=== PATIENT | male | born 1945 | race Caucasian/White ===

== ENCOUNTER 2019-02-27 18:04 | Observation (INO) | payer OTHER ==
[2019-02-27 20:24] LABS: ADD MAN DIFF? NO
[2019-02-27 20:26] LABS: WHITE BLOOD COUNT 9.5 10^3/ul (4.8-10.8)
[2019-02-27 20:26] LABS: BASOPHILS % 0.3 % (0.0-2.0); EOSINOPHILS # 0.1 10^3/ul (0.0-0.5); EOSINOPHILS % 0.5 % (0.0-7.0); HEMATOCRIT 40.8 % (42.0-52.0); HEMOGLOBIN 13.5 g/dl (14.0-18.0); LYMPHOCYTES # 4.4 10^3/ul (0.8-2.9); MEAN CORPUSCULAR HEMOGLOBIN 28.8 pg (29.0-33.0); MEAN CORPUSCULAR HGB CONC 33.1 g/dl (32.0-37.0); MEAN CORPUSCULAR VOLUME 87.2 fl (82.0-101.0); MEAN PLATELET VOLUME 9.2 fl (7.4-10.4); MONOCYTE # 0.6 10^3/ul (0.3-0.9); MONOCYTES % 6.5 % (0.0-11.0); NEUTROPHIL # 4.4 10^3/ul (1.6-7.5); NEUTROPHILS % 46.5 % (39.0-77.0); PLATELET COUNT 301 10^3/UL (140-415); RED BLOOD COUNT 4.68 10^6/ul (4.70-6.10); RED CELL DISTRIBUTION WIDTH 11.9 % (11.5-14.5)
[2019-02-27] MEDS: SOD CHLORIDE 0.9% 500 ML IV (20:26)
[2019-02-27 20:48] LABS: ALANINE AMINOTRANSFERASE 16 IU/L (13-69); ALBUMIN 4.7 g/dl (3.3-4.9); ALKALINE PHOSPHATASE 49 IU/L (42-121); ANION GAP 14 (5-13); ASPARTATE AMINO TRANSFERASE 21 IU/L (15-46); BILIRUBIN,INDIRECT 0.6 mg/dl (0-1.1); BILIRUBIN,TOTAL 0.6 mg/dl (0.2-1.3); BLOOD UREA NITROGEN 17 mg/dl (7-20); CALCIUM 10.3 mg/dl (8.4-10.2); CARBON DIOXIDE 30 mmol/L (21-31); CHLORIDE 100 mmol/L (97-110); CREATININE 1.02 mg/dl (0.61-1.24); GLUCOSE 132 mg/dl (70-220); LIPASE 124 U/L (23-300); POTASSIUM 3.7 mmol/L (3.5-5.1); SODIUM 144 mmol/L (135-144); TOTAL PROTEIN 8.3 g/dl (6.1-8.1)
[2019-02-27 21:35] LABS: ADD UMIC YES; UR ASCORBIC ACID NEGATIVE (NEGATIVE); UR BILIRUBIN (Dip) NEGATIVE (NEGATIVE); UR BLOOD (Dip) NEGATIVE (NEGATIVE); UR CLARITY CLEAR (CLEAR); UR COLOR STRAW (YELLOW); UR GLUCOSE (Dip) NEGATIVE (NEGATIVE); UR KETONES (Dip) TRACE mg/dL (NEGATIVE); UR LEUKOCYTE ESTERASE (Dip) TRACE Leu/ul (NEGATIVE); UR NITRITE (Dip) NEGATIVE (NEGATIVE); UR RBC 1 /HPF (0-5); UR SPECIFIC GRAVITY (Dip) 1.009 (1.003-1.030); UR TOTAL PROTEIN (Dip) NEGATIVE (NEGATIVE); UR UROBILINOGEN (Dip) NEGATIVE (NEGATIVE); UR WBC 1 /HPF (0-5)
[2019-02-28] MEDS ORDERED: ONDANSETRON 4 MG INJ IV
[2019-02-28] MEDS ORDERED: NA PHOSPHATE/BIPHOS 133 ML ENEMA PR (01:00)
[2019-02-28] MEDS ORDERED: ONDANSETRON 4 MG TAB PO (01:00)
[2019-02-28] MEDS ORDERED: NACL 0.9% 3 ML SYG IV (01:00)
[2019-02-28] MEDS ORDERED: ACETAMINOPHEN 325 MG TAB PO ×2 (01:00)
[2019-02-28] MEDS: NS + KCL 20 MEQ 1,000 ML IV (03:22)
[2019-02-28] MEDS: DOCUSATE SODIUM 100 MG CAP PO (03:22)
[2019-02-28] MEDS ORDERED: IBUPROFEN 600 MG TAB PO (04:00)
[2019-02-28] MEDS ORDERED: SUMATRIPTAN 50 MG TAB PO (04:00)
[2019-02-28] MEDS ORDERED: traMADol 50 MG TAB PO (04:00)
[2019-02-28 05:32] LABS: ADD MAN DIFF? NO
[2019-02-28 05:39] LABS: WHITE BLOOD COUNT 9.3 10^3/ul (4.8-10.8)
[2019-02-28 05:39] LABS: BASOPHILS % 0.3 % (0.0-2.0); EOSINOPHILS # 0.1 10^3/ul (0.0-0.5); EOSINOPHILS % 1.3 % (0.0-7.0); HEMATOCRIT 40.4 % (42.0-52.0); HEMOGLOBIN 13.5 g/dl (14.0-18.0); LYMPHOCYTES # 4.4 10^3/ul (0.8-2.9); LYMPHOCYTES % 46.6 % (15.0-51.0); MEAN CORPUSCULAR HEMOGLOBIN 28.7 pg (29.0-33.0); MEAN CORPUSCULAR HGB CONC 33.4 g/dl (32.0-37.0); MEAN PLATELET VOLUME 9.1 fl (7.4-10.4); MONOCYTE # 0.6 10^3/ul (0.3-0.9); MONOCYTES % 6.4 % (0.0-11.0); NEUTROPHIL # 4.2 10^3/ul (1.6-7.5); NEUTROPHILS % 45.1 % (39.0-77.0); PLATELET COUNT 275 10^3/UL (140-415); RED CELL DISTRIBUTION WIDTH 11.9 % (11.5-14.5)
[2019-02-28 06:20] LABS: ANION GAP 9 (5-13); BLOOD UREA NITROGEN 14 mg/dl (7-20); CALCIUM 9.9 mg/dl (8.4-10.2); CARBON DIOXIDE 32 mmol/L (21-31); CHLORIDE 103 mmol/L (97-110); CREATINE KINASE 38 IU/L (23-200); CREATININE 0.96 mg/dl (0.61-1.24); GLUCOSE 117 mg/dl (70-220); MAGNESIUM 1.7 mg/dl (1.7-2.5); POTASSIUM 3.8 mmol/L (3.5-5.1); SODIUM 144 mmol/L (135-144)
[2019-02-28 06:25] LABS: CK INDEX 0.9; CK-MB 0.35 ng/ml (0.0-2.4); TROPONIN-I < 0.012 ng/ml (0.000-0.120)
[2019-02-28 06:30] LABS: FREE THYROXINE INDEX (Calc) 3.17 ug/ml (0.65-3.89); T3 UPTAKE 35.6 % (23.5-40.5); T4 (THYROXINE) 8.9 ug/dl (5.5-11.0)
[2019-02-28 07:44] LABS: HEMOGLOBIN A1C 7.4 % (0-5.9)
[2019-02-28] MEDS: FAMOTIDINE 20 MG TAB PO (08:44)
[2019-02-28] MEDS: GABAPENTIN 100 MG CAP PO (08:44)
[2019-02-28] MEDS: MAGNESIUM CITRATE 300 ML BTL PO (10:40)
== END 2019-02-28 13:00 | disposition home or self-care (01) ==
LOC: E/R 18:04 → PP2 23:45
DX: K59.00 Constipation, unspecified (principal); E11.9 Type 2 diabetes mellitus without complications; N40.0 Benign prostatic hyperplasia without lower urinary tract symptoms
CPT/HCPCS: 36415; 74176; 80048; 80053; 81001; 82550; 82553; 82962; 83036; 83690; 83735; 84436; 84479; 84484; 85025; 93005; 99285-25; G0378